=== PATIENT | female | born 1985 | race Caucasian/White ===

== ENCOUNTER 2019-02-11 19:04 | Emergency (ER) | payer OTHER ==
[~2019-02-11] VITALS: Ht 162.6 cm; Wt 101.2 kg
--- NOTE | 2019-02-11 19:10 | ED.ADGEN ---
Adult General Chief Complaint Chief Complaint ".. I may have strept. throat.. it very sore.. " HPI HPI Patient is a 33 year old female who presents with above hx and complaints of sore throat. Patient's pharyngitis been present since 3 days. Patient children have had recent episodes of upper respiratory infection. No recent travel. No history immunosuppression. Did not receive a flu vaccination this season. No Ill contacts outside of the family. Review of Systems Review of Systems Constitutional: Complains of fever Eyes: Denies change in visual acuity, redness, or eye pain [] HENT: Denies nasal congestion. Complaints of sore throat [] Respiratory: Denies cough or shortness of breath [] Cardiovascular: No additional information not addressed in HPI [] GI: Denies abdominal pain, nausea, vomiting, bloody stools or diarrhea [] : Denies dysuria or hematuria [] Musculoskeletal: Denies back pain or joint pain [] Integument: Denies rash or skin lesions [] Neurologic: Denies headache, focal weakness or sensory changes [] Endocrine: Denies polyuria or polydipsia [] All other systems were reviewed and found to be within normal limits, except as documented in this note. Family History Family History Non-contributory Current Medications Current Medications Current Medications Medications (Trade) Dose Ordered Sig/Oleg Start Time Stop Time Status Last Admin Dose Admin Amoxicillin (Amoxil) 500 mg 1X ONCE 02/11/19 19:45 02/11/19 19:46 DC 02/11/19 20:05 500 MG Diphenhydramine HCl (Benadryl) 50 mg 1X ONCE 02/11/19 19:45 02/11/19 19:46 DC 02/11/19 20:05 50 MG Oxycodone/ Acetaminophen (Percocet 5/325) 2 tab 1X ONCE 02/11/19 19:45 02/11/19 19:46 DC 02/11/19 20:06 2 TAB Prednisone (Prednisone) 50 mg 1X ONCE 02/11/19 19:45 02/11/19 19:46 DC 02/11/19 20:05 50 MG Allergies Allergies Allergies Coded Allergies Type Severity Reaction Last Updated Verified No Known Drug Allergies 02/11/19 No Physical Exam Physical Exam Constitutional:Moderately acute distress, non-toxic appearance. [] HENT: Normocephalic, atraumatic, bilateral external ears normal, oropharynx m oist,inject pharynx, no oral exudates, nose normal. [] Eyes: PERRLA, EOMI, conjunctiva normal, no discharge. [] Neck: Normal range of motion, no tenderness, supple, no stridor. Anterior adenopathy. Cardiovascular:Heart rate regular rhythm, no murmur [] Lungs & Thorax: Bilateral breath sounds clear to auscultation [] Abdomen: Bowel sounds normal, soft, no tenderness, no masses, no pulsatile masses. [] Obese. Skin: Warm, dry, no erythema, no rash. [] Back: No tenderness, no CVA tenderness. [] Extremities: No tenderness, no cyanosis, no clubbing, ROM intact, no edema. [] Neurologic: Alert and oriented X 3, normal motor function, normal sensory function, no focal deficits noted. [] Psychologic: Affect anxious, judgement normal, mood normal. [] Current Patient Data Vital Signs Vital Signs Date Time Temp Pulse Resp B/P (MAP) Pulse Ox O2 Delivery O2 Flow Rate FiO2 02/11/19 19:27 98.2 106 16 98 Room Air Lab Results Laboratory Tests Test 02/11/19 19:15 Influenza Type A (Rapid) Negative (NEGATIVE) Influenza Type B (Rapid) Negative (NEGATIVE) Group A Streptococcus Rapid Positive (NEGATIVE) EKG EKG [] Radiology/Procedures Radiology/Procedures [] Course & Med Decision Making Course & Med Decision Making Pertinent Labs and Imaging studies reviewed. (See chart for details). Our goal Listerine 4 times a day. Take Tylenol and ibuprofen for pain. Liquid ibuprofen and Benadryl may be helpful for topical pain relief. Push fluids. Take amoxicillin 500 mg 3 times a day. Follow-up primary care. Return if any concerns . [] Final Impression Final Impression 1. Pharyngitis[]-Strept. Dragon Disclaimer Kasey Disclaimer This electronic medical record was generated, in whole or in part, using a voice recognition dictation system. Discharge Summary Visit Information Final Diagnosis Problems Medical Problems: (1) Strep throat Status: Acute Brief Hospital Course Allergies Allergies Coded Allergies Type Severity Reaction Last Updated Verified No Known Drug Allergies 02/11/19 No Vital Signs Vital Signs Date Time Temp Pulse Resp B/P (MAP) Pulse Ox O2 Delivery O2 Flow Rate FiO2 02/11/19 19:27 98.2 106 16 98 Room Air Lab Results Laboratory Tests Test 02/11/19 19:15 Influenza Type A (Rapid) Negative (NEGATIVE) Influenza Type B (Rapid) Negative (NEGATIVE) Group A Streptococcus Rapid Positive (NEGATIVE) Brief Hospital Course Ms. Weir is a 33 old female who presented with strept. pharyngitis. Discharge Information Condition at Discharge: Stable Disposition/Orders: D/C to Home Dischare Medications Current Medications Prednisone (Prednisone) 50 mg 1X ONCE PO Last administered on 02/11/19at 20:05; Admin Dose 50 MG; Start 02/11/19 at 19:45; Stop 02/11/19 at 19:46; Status DC Diphenhydramine HCl (Benadryl) 50 mg 1X ONCE PO Last administered on 02/11/19at 20:05; Admin Dose 50 MG; Start 02/11/19 at 19:45; Stop 02/11/19 at 19:46; Status DC Oxycodone/ Acetaminophen (Percocet 5/325) 2 tab 1X ONCE PO Last administered on 02/11/19at 20:06; Admin Dose 2 TAB; Start 02/11/19 at 19:45; Stop 02/11/19 at 19:46; Status DC Amoxicillin (Amoxil) 500 mg 1X ONCE PO Last administered on 02/11/19at 20:05; Admin Dose 500 MG; Start 02/11/19 at 19:45; Stop 02/11/19 at 19:46; Status DC Active Scripts Active Amoxicillin 500 Mg Capsule 500 Mg PO TID 7 Days Kasey Disclaimer This chart was dictated in whole or in part using Voice Recognition software in a busy, high-work load, and often noisy Emergency Department environment. It may contain unintended and wholly unrecognized errors or omissions. SEMAJ AGRAWAL MD Feb 11, 2019 19:10
[2019-02-11 19:27] VITALS: BP 160/105
[2019-02-11] MEDS ORDERED: AMOX500C PO (19:42)
[2019-02-11] MEDS ORDERED: diphenhydrAMINE HCL 25 MG CAPSULE PO ONE (19:45)
[2019-02-11] MEDS ORDERED: oxyCODONE/APAP 5/325 1 TAB TABLET PO ONE (19:45)
[2019-02-11] MEDS ORDERED: AMOXICILLIN 250 MG CAPSULE PO ONE (19:45)
[2019-02-11] MEDS ORDERED: predniSONE 10 MG TABLET PO ONE (19:45)
[2019-02-11 19:53] LABS: INFLUENZA A PATIENT NEGATIVE (NEGATIVE); INFLUENZA B PATIENT NEGATIVE (NEGATIVE)
== END 2019-02-11 20:14 | disposition home or self-care (01) ==
LOC: ER 19:04
DX: J02.0 Streptococcal pharyngitis (principal); B95.0 Streptococcus, group A, as the cause of diseases classified elsewhere
CPT/HCPCS: 87804; 87880; 99284; J7512; Q0163

== ENCOUNTER 2021-04-14 06:25 | Emergency (ER) | payer OTHER ==
[~2021-04-14] VITALS: Ht 162.6 cm; Wt 101.9 kg
[~2021-04-14 06:25] MED LIST: AMOX500C PO
--- NOTE | 2021-04-14 07:09 | EKG ---
[address] [address] Test Date: 2021-04-14 Test Time: 06:35:48 Pat Name: OLIVE CABRERA Department: Room: Gender: F Tourist Adviser: NICANOR : 1985 Requested By: JASPREET LAW Order Number: [id number] Reading MD: Measurements Intervals [place] Rate: 87 P: 31 MT: 148 QRS: 15 QRSD: 84 T: 47 QT: 376 QTc: 459 Interpretive Statements SINUS RHYTHM LEFT ATRIAL ABNORMALITY ABNORMAL ECG RI6.02 No previous ECG available for comparison
[2021-04-14 07:18] LABS: BASO % 1 % (0-3); EOS # 0.1 x10^3/uL (0.0-0.7); EOS % 2 % (0-3); HEMATOCRIT 42.4 % (36.0-47.0); HEMOGLOBIN 14.5 g/dL (12.0-15.5); LYMPH # 1.7 x10^3/uL (1.0-4.8); LYMPH % 28 % (24-48); MEAN CORPUSCULAR HEMOGLOBIN 32 pg (25-35); MEAN CORPUSCULAR HGB CONC 34 g/dL (31-37); MEAN CORPUSCULAR VOLUME 93 fL (79-100); MONO # 0.5 x10^3/uL (0.0-1.1); MONO % 8 % (0-9); NEUT # 3.7 x10^3uL (1.8-7.7); NEUT % 61 % (31-73); PLATELET COUNT 256 x10^3/uL (140-400); RED BLOOD COUNT 4.55 x10^6/uL (3.50-5.40); RED CELL DISTRIBUTION WIDTH 12.7 % (11.5-14.5)
[2021-04-14 07:26] LABS: CALCIUM 8.9 mg/dL (8.5-10.1); CREATININE 0.8 mg/dL (0.6-1.0); GFR 82.1; POTASSIUM 4.3 mmol/L (3.5-5.1)
--- NOTE | 2021-04-14 07:27 | RAD ---
INDICATION: Reason: chest pain / Spl. Instructions: / History: COMPARISON: None. FINDINGS: 2 view of chest obtained. No focal airspace consolidation. Cardiomediastinal contour unremarkable. No acute osseous abnormality. Mild degenerative changes spine IMPRESSION: * No focal airspace consolidation or edema. Electronically signed by: Jason Chen MD (04/14/2021 7:25 AM) [id number]
--- NOTE | 2021-04-14 07:31 | PHYS DOC ---
Past History Past Medical History: Fibromyalgia, Hypertension Additional Past Medical Histor: H-FLU(BACTERIAL INFECTION) Past Surgical History: Tubal ligation, Other Additional Past Surgical Histo: D & C Alcohol Use: Occasionally Drug Use: None General Adult EDM: Chief Complaint: CHEST PAIN HPI: HPI: Patient is a 35-year-old female coming in for jaw pain that began radiating to her neck and her chest. No states she has pain between her shoulder blades that radiates through to her chest. Patient initially feeling as a cramping pain and tried to take a hot shower to relieve it. Is the pain has been constant since 2 AM. Says she had had some nausea and lightheadedness. Denies any vomiting. Patient recently diagnosed with a H. influenza and finished her course of amoxicillin. Patient states she has been feeling better. She was also tested for Covid and was negative and has not received any of her vaccines. History of a history of well-controlled hypertension taking hydrochlorothiazide, and ADHD taking Adderall. Review of Systems: Review of Systems: All other systems within normal limits except for as noted in the HPI Allergies: Allergies: Allergies Coded Allergies Type Severity Reaction Last Updated Verified No Known Drug Allergies 02/11/19 No Physical Exam: PE: Constitutional: Well developed, well nourished, no acute distress, non-toxic appearance. [] HENT: Normocephalic, atraumatic, bilateral external ears normal, nose normal. [] Eyes: PERRLA, conjunctiva normal, no discharge. [] Neck: No rigidity, supple, no stridor. [] Cardiovascular: Regular rate and rhythm, brisk cap refill [] Lungs & Thorax: Non labored symmetric respirations, no tachypnea or respiratory distress [] Abdomen: Soft, nondistended. Skin: Warm, dry, no erythema, no rash. [] Back: Unremarkable Extremities: No deformities, range of motion grossly intact, no lower extremity edema [] Neurologic: Alert and oriented X 3, no focal deficits noted. [] Psychologic: Affect normal, judgement normal, mood normal. [] Current Patient Data: Labs: Laboratory Tests Test 04/14/21 06:55 White Blood Count 6.0 x10^3/uL (4.0-11.0) Red Blood Count 4.55 x10^6/uL (3.50-5.40) Hemoglobin 14.5 g/dL (12.0-15.5) Hematocrit 42.4 % (36.0-47.0) Mean Corpuscular Volume 93 fL (79-100) Mean Corpuscular Hemoglobin 32 pg (25-35) Mean Corpuscular Hemoglobin Concent 34 g/dL (31-37) Red Cell Distribution Width 12.7 % (11.5-14.5) Platelet Count 256 x10^3/uL (140-400) Neutrophils (%) (Auto) 61 % (31-73) Lymphocytes (%) (Auto) 28 % (24-48) Monocytes (%) (Auto) 8 % (0-9) Eosinophils (%) (Auto) 2 % (0-3) Basophils (%) (Auto) 1 % (0-3) Neutrophils # (Auto) 3.7 x10^3uL (1.8-7.7) Lymphocytes # (Auto) 1.7 x10^3/uL (1.0-4.8) Monocytes # (Auto) 0.5 x10^3/uL (0.0-1.1) Eosinophils # (Auto) 0.1 x10^3/uL (0.0-0.7) Basophils # (Auto) 0.0 x10^3/uL (0.0-0.2) Vital Signs: Vital Signs Date Time Temp Pulse Resp B/P (MAP) Pulse Ox O2 Delivery O2 Flow Rate FiO2 04/14/21 06:25 98.0 90 20 156/110 100 Room Air EKG: EKG: Sinus rhythm, heart rate 89 beats minute, no ST elevation depression, no ectopy. [] Radiology/Procedures: Radiology/Procedures: [place] [id number] IMAGING REPORT Signed PATIENT: OLIVE CABRERA ACCOUNT: [id number] : 1985 LOCATION: ER AGE: 35 SEX: F EXAM STATUS: REG ER ORD. PHYSICIAN: JASPREET LAW MD REASON: chest pain, aortic dissection, OMNI 350, 100ml PROCEDURE: CT ANGIOGRAPHY CHEST ABDOMEN EXAM: CTA OF THE CHEST, ABDOMEN AND PELVIS WITH CONTRAST. HISTORY: Chest pain, aortic dissection. TECHNIQUE: Computed tomographic angiography of the chest, abdomen and pelvis was performed after the intravenous administration of iodinated contrast. One or more of the following individualized dose reduction techniques were utilized for this examination: 1. Automated exposure control. 2. Adjustment of the mA and/or kV according to patient size. 3. Use of iterative reconstruction technique. COMPARISON: None. FINDINGS: Bone windows reveal no suspicious lesions. There are no pathologically enlarged mediastinal or axillary lymph nodes. There is no pleural or pericardial effusion. The heart is not enlarged. There is a moderate hiatal hernia. Lung windows reveal no infiltrates. The liver, gallbladder, pancreas, adrenal glands, spleen and left kidney are unremarkable. A tiny fat density focus in the right renal cortex measures 3 mm and is consistent with an angiomyolipoma. There are no pathologically enlarged lymph nodes. Changes of bilateral fallopian tube closure are noted. The appendix is not inflamed. There is no small bowel obstruction. The thoracic aorta is normal in caliber. There is no aortic dissection. There is no arch vessel stenosis. There is no pulmonary embolism. There is no abdominal aortic aneurysm. Both iliac systems are patent without stenosis. The celiac axis, superior mesenteric artery and inferior mesenteric artery are patent. The inferior mesenteric artery gives rise to an accessory artery to the right renal lower pole just beyond its origin. Both main renal arteries are patent without stenosis. IMPRESSION: 1. No aortic dissection or aneurysm. 2. Moderate hiatal hernia. Electronically signed by: Micky Hall MD (04/14/2021 9:17 AM) [id number] DICTATED AND SIGNED BY: DEJA HALL MD DATE: 04/14/21 0858 CC: JASPREET LAW MD; JOSELINE RYDER MD ~MTH0 0 [] Heart Score: C/O Chest Pain: Yes HEART Score for Chest Pain: HEART Score for Chest Pain Response (Comments) Value History Moderately Suspicious 1 ECG Nonspecific Repolarizatio 1 Age < 45 0 Risk Factors 1 or 2 Risk Factors 1 Troponin >3 x Normal Limit 2 Total 5 Risk Factors: Risk Factors: DM, Current or recent (<one month) smoker, HTN, HLP, family history of CAD, obesity. Risk Scores: Score 0 - 3: 2.5% MACE over next 6 weeks - Discharge Home Score 4 - 6: 20.3% MACE over next 6 weeks - Admit for Clinical Observation Score 7 - 10: 72.7% MACE over next 6 weeks - Early Invasive Strategies Course & Med Decision Making: Course & Med Decision Making Pertinent Labs and Imaging studies reviewed. (See chart for details) [] Consulted cardiology, patient finally admits to using methamphetamines yes terday. Discussed with brick tender practitioner and brick tender that we can admit her here for heparin drip, would not be taken to [facility]. Dragon Disclaimer: Dragon Disclaimer: This electronic medical record was generated, in whole or in part, using a voice recognition dictation system. Departure Departure: Impression: Primary Impression: NSTEMI (non-ST elevated myocardial infarction) Disposition: ADMITTED INPATIENT Admitting Physician: Agata Garcia Condition: GUARDED Referrals: JOSELINE RYDER MD (PCP) JASPREET LAW MD Apr 14, 2021 07:31
[2021-04-14 07:38] LABS: ALBUMIN 3.9 g/dL (3.4-5.0); ALBUMIN/GLOBULIN RATIO 1.4 (1.0-1.7); MAGNESIUM 2.2 mg/dL (1.8-2.4); TOTAL BILIRUBIN 0.7 mg/dL (0.2-1.0); TOTAL PROTEIN 6.6 g/dL (6.4-8.2)
[2021-04-14] MEDS ORDERED: KETOROLAC 15 MG/ML VIAL. ONE (07:38)
[2021-04-14] MEDS ORDERED: ONDANSETRON PF 4 MG/2 ML VIAL. IVP ONE (07:45)
[2021-04-14] MEDS ORDERED: IV NORMAL SALINE 1,000ML 1,000 ML IV ONE (07:45)
[2021-04-14] MEDS ORDERED: ASPIRIN CHEWABLE 81 MG TABLET. PO ONE (07:45)
[2021-04-14] MEDS: NITROGLYCERIN SUBLINGUAL 0.4 MG BOTTLE OF 25. SL PRN ×2 (07:46→11:39)
[2021-04-14 07:55] LABS: BACTERIA,URINE 0 /HPF (0-FEW); BILIRUBIN,URINE NEG (NEG); CLARITY,URINE HAZY; COLOR,URINE STRAW; GLUCOSE,URINE NEG (NEG); NITRITE,URINE NEG (NEG); RBC,URINE 0 /HPF (0-2); SQUAMOUS EPITHELIAL CELL,UR MANY /LPF; UROBILINOGEN,URINE 0.2 mg/dL (0.2 mg/dL)
[2021-04-14] MEDS ORDERED: IOHEXOL 350 MG/ML 100 ML VIAL. IV ONE (08:00)
[2021-04-14 08:10] LABS: AMPHETAMINE/METHAMPHETAMINE POS (NEG); BARBITURATES NEG (NEG); BENZODIAZEPINES NEG (NEG); CANNABINOIDS NEG (NEG); COCAINE NEG (NEG); METHADONE NEG (NEG); OPIATES NEG (NEG); PHENCYCLIDINE NEG (NEG)
--- NOTE | 2021-04-14 08:23 | EKG ---
[address] [address] Test Date: 2021-04-14 Test Time: 08:13:15 Pat Name: OLIVE CABRERA Department: Room: Gender: F Die Cleaner: NAZARIO : 1985 Requested By: JASPREET LAW Order Number: [id number] Reading MD: Abelardo Rangel MD Measurements Intervals [place] Rate: 89 P: 31 MI: 136 QRS: 21 QRSD: 82 T: 36 QT: 370 QTc: 451 Interpretive Statements SINUS RHYTHM NON-SPECIFIC ST/T CHANGES Electronically Signed On 04-14-2021 16:01:25 CDT by Abelardo Rangel MD
[2021-04-14] MEDS ORDERED: HEPARIN 25,000UTS/250ML PREMIX 250 ML IV PRN (08:30)
[2021-04-14] MEDS ORDERED: HEPARIN for IV BOLUS 10,000 UNIT/10 ML VIAL. IV PRN (08:30)
[2021-04-14] MEDS ORDERED: HEPARIN for IV BOLUS 10,000 UNIT/10 ML VIAL. IV ONE (08:30)
--- NOTE | 2021-04-14 08:49 | PDOC2 ---
CARDIAC CONSULT DATE OF CONSULT DOS: DATE: 04/14/21 TIME: 08:31 REASON FOR CONSULT Reason for Consult Chest pain REFERRING PHYSICIAN Referring Physician Dr. Duarte SOURCE Source: Chart review, Patient HPI History of Present Illness This is a 35 yo female who presented secondary to chest pain. Patient reports she woke up in the middle of the night with throbbing in her jaw. Pain moved down into her left chest. Describes as pressure. Pain went through to her back and down the backside of her left arm. Was associated with dizziness, diaphoresis, and shortness of breath. No prior h/o CAD. Pain improved with fentanyl in ED. Has a history of HTN and AHDH and in on Adderall. UDS + for amphetamines. Also reports h/o methamphetamine use and used meth last night. Initial troponin 0.2. EKG without significant acute changes. PAST MEDICAL HISTORY Cardiovascular: HTN Psych: Addictions (methamphetamines ), Other (ADHD ) PAST SURGICAL HISTORY Past Surgical History: No pertinent history FAMILY HISTORY Family History: Coronary Artery Disease (father ) SOCIAL HISTORY Smoke: 1 pack per day ALCOHOL: none Drugs: Crystal meth Lives: with Family CURRENT MEDICATIONS Current Medications Current Medications Aspirin (Aspirin Chewable) 324 mg 1X ONCE PO Last administered on 04/14/21at 07:46; Start 04/14/21 at 07:45; Stop 04/14/21 at 07:46; Status DC Ketorolac Tromethamine (Toradol 15mg Vial) 15 mg STK-MED ONCE .ROUTE ; Start 04/14/21 at 07:38; Stop 04/14/21 at 07:39; Status DC Fentanyl Citrate (Fentanyl 2ml Vial) 75 mcg 1X ONCE IVP Last administered on 04/14/21at 07:47; Start 04/14/21 at 07:45; Stop 04/14/21 at 07:46; Status UNV Sodium Chloride 1,000 ml @ 1,000 mls/hr 1X ONCE IV Last administered on 04/14/21at 07:47; Start 04/14/21 at 07:45; Stop 04/14/21 at 08:44; Status UNV Ondansetron HCl (Zofran) 4 mg 1X ONCE IVP Last administered on 04/14/21at 07:47; Start 04/14/21 at 07:45; Stop 04/14/21 at 07:46; Status UNV Nitroglycerin (Nitrostat) 0.4 mg PRN Q5MIN PRN SL CHEST PAIN Last administered on 04/14/21at 07:46; Start 04/14/21 at 07:45; Status UNV Iohexol (Omnipaque 350 Mg/ml) 100 ml 1X ONCE IV ; Start 04/14/21 at 08:00; Stop 04/14/21 at 08:01; Status UNV Heparin Sodium/ Dextrose 250 ml @ 0 mls/hr CONT PRN IV SEE I/O RECORD; Start 04/14/21 at 08:30; Status UNV Heparin Sodium (Porcine) (Heparin Sodium) 4,000 unit 1X ONCE IV ; Start 04/14/21 at 08:30; Stop 04/14/21 at 08:31; Status UNV Heparin Sodium (Porcine) (Heparin Sodium) 2,550 unit PRN Q6HRS PRN IV FOR PTT LESS THAN 24 SECONDS; Start 04/14/21 at 08:30; Status UNV Active Scripts Active Amoxicillin 500 Mg Capsule 500 Mg PO TID 7 Days ALLERGIES Allergies: Coded Allergies: No Known Drug Allergies (Unverified , 02/11/19) ROS Review of Systems 14 ROS conducted with pertinent positives noted above in HPI PHYSICAL EXAM General: Alert, Oriented X3, Cooperative, No acute distress HEENT: Atraumatic Lungs: Clear to auscultation, Normal air movement Heart: Regular rate Abdomen: Soft, No tenderness Extremities: No edema, Normal pulses Skin: No rashes, No breakdown Neuro: Normal speech, Sensation intact Psych/Mental Status: Mental status NL, Mood NL MUSCULOSKELETAL: No swelling VITALS Vital Signs Vital Signs Date Time Temp Pulse Resp B/P (MAP) Pulse Ox O2 Delivery O2 Flow Rate FiO2 04/14/21 07:47 20 100 Room Air 04/14/21 07:46 90 156/110 04/14/21 06:25 98.0 LABS LABS Laboratory Tests Test 04/14/21 06:55 04/14/21 07:21 04/14/21 07:38 White Blood Count 6.0 x10^3/uL (4.0-11.0) Red Blood Count 4.55 x10^6/uL (3.50-5.40) Hemoglobin 14.5 g/dL (12.0-15.5) Hematocrit 42.4 % (36.0-47.0) Mean Corpuscular Volume 93 fL (79-100) Mean Corpuscular Hemoglobin 32 pg (25-35) Mean Corpuscular Hemoglobin Concent 34 g/dL (31-37) Red Cell Distribution Width 12.7 % (11.5-14.5) Platelet Count 256 x10^3/uL (140-400) Neutrophils (%) (Auto) 61 % (31-73) Lymphocytes (%) (Auto) 28 % (24-48) Monocytes (%) (Auto) 8 % (0-9) Eosinophils (%) (Auto) 2 % (0-3) Basophils (%) (Auto) 1 % (0-3) Neutrophils # (Auto) 3.7 x10^3uL (1.8-7.7) Lymphocytes # (Auto) 1.7 x10^3/uL (1.0-4.8) Monocytes # (Auto) 0.5 x10^3/uL (0.0-1.1) Eosinophils # (Auto) 0.1 x10^3/uL (0.0-0.7) Basophils # (Auto) 0.0 x10^3/uL (0.0-0.2) Prothrombin Time 9.3 SEC (9.4-11.4) Prothromb Time International Ratio 0.9 (0.9-1.1) D-Dimer ([place]) < 0.19 mg/L (0.00-0.50) Sodium Level 139 mmol/L (136-145) Potassium Level 4.3 mmol/L (3.5-5.1) Chloride Level 104 mmol/L (98-107) Carbon Dioxide Level 28 mmol/L (21-32) Anion Gap 7 (6-14) Blood Urea Nitrogen 11 mg/dL (7-20) Creatinine 0.8 mg/dL (0.6-1.0) Estimated GFR (Cockcroft-Gault) 82.1 BUN/Creatinine Ratio 14 (6-20) Glucose Level 98 mg/dL (70-99) Calcium Level 8.9 mg/dL (8.5-10.1) Magnesium Level 2.2 mg/dL (1.8-2.4) Total Bilirubin 0.7 mg/dL (0.2-1.0) Aspartate Amino Transf (AST/SGOT) 16 U/L (15-37) Alanine Aminotransferase (ALT/SGPT) 28 U/L (14-59) Alkaline Phosphatase 87 U/L (46-116) Troponin I Quantitative 0.203 ng/mL (0-0.055) GG-Gjd-Q-Type Natriuretic Peptide 215 pg/mL (0-124) Total Protein 6.6 g/dL (6.4-8.2) Albumin 3.9 g/dL (3.4-5.0) Albumin/Globulin Ratio 1.4 (1.0-1.7) Lipase 86 U/L (73-393) Urine Collection Type Unknown Urine Color Straw Urine Clarity Hazy Urine pH 7.0 Urine Specific [place] 1.020 Urine Protein Neg (NEG-TRACE) Urine Glucose (UA) Neg mg/dL (NEG) Urine Ketones (Stick) Trace mg/dL (NEG) Urine Blood Neg (NEG) Urine Nitrite Neg (NEG) Urine Bilirubin Neg (NEG) Urine Urobilinogen Dipstick 0.2 mg/dL (0.2 mg/dL) Urine Leukocyte Esterase Neg (NEG) Urine RBC 0 /HPF (0-2) Urine WBC 1-4 /HPF (0-4) Urine Squamous Epithelial Cells Many /LPF Urine Bacteria 0 /HPF (0-FEW) Urine Opiates Screen Neg (NEG) Urine Methadone Screen Neg (NEG) Urine Barbiturates Neg (NEG) Urine Phencyclidine Screen Neg (NEG) Urine Amphetamine/Methamphetamine Pos (NEG) Urine Benzodiazepines Screen Neg (NEG) Urine Cocaine Screen Neg (NEG) Urine Cannabinoids Screen Neg (NEG) Urine Ethyl Alcohol Neg (NEG) Bedside Urine HCG, Qualitative hcg negative (Negative) ASSESSMENT/PLAN Assessment/Plan 1. Chest pain, mixed features 2. Elevated trop; initial 0.2. EKG without significant acute changes. CTA pending. Oh heparin gtt. Most probably secondary to #5 3. Hypertension; mildly elevated upon arrival. 4. ADHD; on Adderall 5. Drugs abuse; reports marijuana and methamphetamine use. Last used last night Recommendations Trend troponin Lipids ASA Echo to assess LV systolic function Discussed cessation from tobacco and recreational drug use. SURAJ SCHULTE APRN Apr 14, 2021 08:49
--- NOTE | 2021-04-14 09:20 | RAD ---
EXAM: CTA OF THE CHEST, ABDOMEN AND PELVIS WITH CONTRAST. HISTORY: Chest pain, aortic dissection. TECHNIQUE: Computed tomographic angiography of the chest, abdomen and pelvis was performed after the intravenous administration of iodinated contrast. One or more of the following individualized dose re duction techniques were utilized for this examination: 1. Automated exposure control. 2. Adjustment of the mA and/or kV according to patient size. 3. Use of iterative reconstruction technique. COMPARISON: None. FINDINGS: Bone windows reveal no suspicious lesions. There are no pathologically enlarged mediastinal or axillary lymph nodes. There is no pleural or eric cardial effusion. The heart is not enlarged. There is a moderate hiatal hernia. Lung windows reveal no infiltrates. The liver, gallbladder, pancreas, adrenal glands, spleen and left kidney are unremarkable. A tiny fat density focus in the right renal cortex measures 3 mm and is consistent with an angiomyolipoma. There are no pathologically enlarged lymph nodes. Changes of bilateral fallopian tube closure are not ed. The appendix is not inflamed. There is no small bowel obstruction. The thoracic aorta is normal in caliber. There is no aortic dissection. There is no arch vessel steno sis. There is no pulmonary embolism. There is no abdominal aortic aneurysm. Both iliac systems are patent without stenosis. The celiac axis, superior mesenteric artery and inferior mesenteric artery are patent. The inferior m esenteric artery gives rise to an accessory artery to the right renal lower pole just beyond its orig in. Both main renal arteries are patent without stenosis. IMPRESSION: 1. No aortic dissection or aneurysm. 2. Moderate hiatal hernia. Electronically signed by: Micky Hall MD (04/14/2021 9:17 AM) [id number]
[2021-04-14] MEDS ORDERED: ACETAMINOPHEN 325 MG TABLET PO ONE (10:00)
[2021-04-14] MEDS ORDERED: ACETAMINOPHEN 325 MG TABLET PO PRN (10:15)
[2021-04-14] MEDS ORDERED: ONDANSETRON PF 4 MG/2 ML VIAL. IVP PRN (10:15)
[2021-04-14 14:15] VITALS: BP 159/107
[2021-04-15] MEDS ORDERED: ASPIRIN ENTERIC COATED 81 MG TABLET.DR. PO SCH (08:00)
== END 2021-04-14 19:45 | disposition admitted as inpatient to this hospital (09) ==
LOC: ER 06:25
DX: I21.4 Non-ST elevation (NSTEMI) myocardial infarction (principal); M79.7 Fibromyalgia; I10 Essential (primary) hypertension; Z20.822 Contact with and (suspected) exposure to COVID-19
CPT/HCPCS: 36415; 71046; 71275; 74175; 80053; 80061; 80307; 81001; 81025; 83690; 83735; 83880; 84484; 85025; 85379; 85610; 85730; 93005; 96361; 96365; 96366; 96375; 96376; 99285; J1644; J2405; J3010; J7030; Q9967; U0003

== ENCOUNTER 2021-04-17 19:14 | Emergency (ER) | payer OTHER ==
[2021-04-17 20:11] LABS: BASO # 0.1 x10^3/uL (0.0-0.2); BASO % 1 % (0-3); EOS # 0.3 x10^3/uL (0.0-0.7); EOS % 4 % (0-3); HEMATOCRIT 40.2 % (36.0-47.0); HEMOGLOBIN 13.6 g/dL (12.0-15.5); LYMPH % 29 % (24-48); MEAN CORPUSCULAR HEMOGLOBIN 32 pg (25-35); MEAN CORPUSCULAR HGB CONC 34 g/dL (31-37); MEAN CORPUSCULAR VOLUME 94 fL (79-100); MONO # 0.4 x10^3/uL (0.0-1.1); MONO % 6 % (0-9); NEUT # 4.2 x10^3uL (1.8-7.7); NEUT % 61 % (31-73); PLATELET COUNT 294 x10^3/uL (140-400); RED BLOOD COUNT 4.27 x10^6/uL (3.50-5.40); RED CELL DISTRIBUTION WIDTH 12.8 % (11.5-14.5); WHITE BLOOD COUNT 6.9 x10^3/uL (4.0-11.0)
[2021-04-17] MEDS ORDERED: MVI, ADULT NO.4 WITH VIT K 10 ML, THIAMINE INJ 100 MG in IV RINGERS SOLUTION,LACTATED 1... IV ONE (20:15)
[2021-04-17 20:22] LABS: CALCIUM 8.8 mg/dL (8.5-10.1); CREATININE 0.7 mg/dL (0.6-1.0); GFR 95.8; POTASSIUM 3.9 mmol/L (3.5-5.1)
[2021-04-17] MEDS ORDERED: ASPIRIN CHEWABLE 81 MG TABLET. PO ONE (20:30)
[2021-04-17] MEDS ORDERED: IV RINGERS SOLUTION,LACTATED 1,000 ML IV SCH (20:30)
[2021-04-17 20:34] LABS: ALBUMIN 3.4 g/dL (3.4-5.0); DIRECT BILIRUBIN 0.1 mg/dL (0.0-0.2); TOTAL BILIRUBIN 0.5 mg/dL (0.2-1.0)
--- NOTE | 2021-04-17 20:51 | PHYS DOC ---
Past History Past Medical History: Fibromyalgia, Hypertension Additional Past Medical Histor: H-FLU(BACTERIAL INFECTION) Past Surgical History: Tubal ligation, Other Additional Past Surgical Histo: D & C Alcohol Use: Occasionally Drug Use: None General Adult EDM: Chief Complaint: CHEST PAIN HPI: HPI: ".. My Blood pressure was up at home.. and I having some chest pain on central lt side.." Patient is a 35 year old female who presents with Lt side chest pain and reportedly elevated BP at home. Patient's relates pain is somewhat pleuritic. And increased with deep breaths and cough. Pt reportedly recently had a small AR on 04/14. Is reportedly following with Cardiology. Patient does have past history of fibromyalgia, hypertension, H. influenzae, tubal ligation, D&C, and prior episodes of anginal-like pain. No history of coagulopathy or previous DVTs or pulmonary embolisms. No history of coagulopathy or DVTs or pulmonary embolisms with family. Patient was seen on 04/14/2021 for similar type complaint. Patient has not taken Covid vaccination. Has not received any other vaccines. Patient's hypertension has been well controlled on hydrochlorothiazide. Patient also has ADHD and has been taking Adderall. No recent travel. No specific ill contacts. Very anxious. Normally follows with Dr. Monsivais Review of Systems: Review of Systems: Constitutional: Denies fever or chills Eyes: Denies change in visual acuity HENT: Denies nasal congestion or sore throat Respiratory: Denies cough or shortness of breath Cardiovascular: Complains of central chest pain GI: Denies abdominal pain, nausea, vomiting, bloody stools or diarrhea : Denies dysuria Musculoskeletal: Denies back pain or joint pain Integument: Denies rash Neurologic: Denies headache, focal weakness or sensory changes Endocrine: Denies polyuria or polydipsia Lymphatic: Denies swollen glands Psychiatric: Denies depression or anxiety Family History: Family History: Noncontributory to current presentation Current Medications: Current Meds: Current Medications Medications (Trade) Dose Ordered Sig/Oleg Start Time Stop Time Status Last Admin Dose Admin Aspirin (Aspirin Chewable) 324 mg 1X ONCE 04/17/21 20:30 04/17/21 20:13 DC Lactated Ringer's 1,000 ml @ 1,000 mls/hr Q1H 04/17/21 20:30 04/17/21 20:13 DC Multivitamins/ Minerals 10 ml/ Thiamine HCl 100 mg/Lactated Ringer's 1,011.3 ml @ 1,011.3 mls/hr 1X ONCE 04/17/21 20:15 04/17/21 20:13 DC Allergies: Allergies: Allergies Coded Allergies Type Severity Reaction Last Updated Verified No Known Drug Allergies 02/11/19 No Physical Exam: PE: Constitutional: Well developed, well nourished, moderate acute distress, non- toxic appearance. [] HENT: Normocephalic, atraumatic, bilateral external ears normal, oropharynx moist, no oral exudates, nose normal. [] Eyes: PERRLA, EOMI, conjunctiva normal, no discharge. [] Neck: Normal range of motion, no tenderness, supple, no stridor. [] Cardiovascular: Tachycardia heart rate regular rhythm, no murmur [] Lungs & Thorax: Bilateral breath sounds equal apex with few scattered wheezes on auscultation [] Abdomen: Bowel sounds normal, soft, no tenderness, no masses, no pulsatile masses. [] Skin: Warm, dry, no erythema, no rash. [] Back: No tenderness, no CVA tenderness. [] Extremities: No tenderness, no cyanosis, no clubbing, ROM intact, no edema. No cording appreciated Neurologic: Alert and oriented X 3, normal motor function, normal sensory function, no focal deficits noted. [] Psychologic: Affect very anxious, judgement normal, mood normal. [] Current Patient Data: Labs: Laboratory Tests Test 04/17/21 19:55 White Blood Count 6.9 x10^3/uL (4.0-11.0) Red Blood Count 4.27 x10^6/uL (3.50-5.40) Hemoglobin 13.6 g/dL (12.0-15.5) Hematocrit 40.2 % (36.0-47.0) Mean Corpuscular Volume 94 fL (79-100) Mean Corpuscular Hemoglobin 32 pg (25-35) Mean Corpuscular Hemoglobin Concent 34 g/dL (31-37) Red Cell Distribution Width 12.8 % (11.5-14.5) Platelet Count 294 x10^3/uL (140-400) Neutrophils (%) (Auto) 61 % (31-73) Lymphocytes (%) (Auto) 29 % (24-48) Monocytes (%) (Auto) 6 % (0-9) Eosinophils (%) (Auto) 4 % (0-3) H Basophils (%) (Auto) 1 % (0-3) Neutrophils # (Auto) 4.2 x10^3uL (1.8-7.7) Lymphocytes # (Auto) 2.0 x10^3/uL (1.0-4.8) Monocytes # (Auto) 0.4 x10^3/uL (0.0-1.1) Eosinophils # (Auto) 0.3 x10^3/uL (0.0-0.7) Basophils # (Auto) 0.1 x10^3/uL (0.0-0.2) Sodium Level 140 mmol/L (136-145) Potassium Level 3.9 mmol/L (3.5-5.1) Chloride Level 103 mmol/L (98-107) Carbon Dioxide Level 27 mmol/L (21-32) Anion Gap 10 (6-14) Blood Urea Nitrogen 12 mg/dL (7-20) Creatinine 0.7 mg/dL (0.6-1.0) Estimated GFR (Cockcroft-Gault) 95.8 Glucose Level 101 mg/dL (70-99) H Calcium Level 8.8 mg/dL (8.5-10.1) Magnesium Level 2.0 mg/dL (1.8-2.4) Total Bilirubin 0.5 mg/dL (0.2-1.0) Direct Bilirubin 0.1 mg/dL (0.0-0.2) Aspartate Amino Transferase (AST) 23 U/L (15-37) Alanine Aminotransferase (ALT) 31 U/L (14-59) Alkaline Phosphatase 81 U/L (46-116) Creatine Kinase 50 U/L (26-192) Troponin I Quantitative 0.124 ng/mL (0-0.055) H RI-Qye-F-Type Natriuretic Peptide 904 pg/mL (0-124) H Total Protein 7.0 g/dL (6.4-8.2) Albumin 3.4 g/dL (3.4-5.0) Lipase 70 U/L (73-393) L EKG: EKG: My interpretation EKG shows a sinus tachycardia 106 bpm. Does have some bimodal P waves and left leads. But no findings acute STEMI or contralateral changes. [] Radiology/Procedures: Radiology/Procedures: Patient left before completing chest x-ray [] Heart Score: C/O Chest Pain: Yes HEART Score for Chest Pain: HEART Score for Chest Pain Response (Comments) Value History Slighlty/Non-Suspicious 0 ECG Normal 0 Age < 45 0 Risk Factors No Risk Factors 0 Troponin >1-<3x Normal Limit 1 Total 1 Risk Factors: Risk Factors: DM, Current or recent (<one month) smoker, HTN, HLP, family history of CAD, obesity. Risk Scores: Score 0 - 3: 2.5% MACE over next 6 weeks - Discharge Home Score 4 - 6: 20.3% MACE over next 6 weeks - Admit for Clinical Observation Score 7 - 10: 72.7% MACE over next 6 weeks - Early Invasive Strategies Course & Med Decision Making: Course & Med Decision Making Pertinent Labs and Imaging studies reviewed. (See chart for details) Pt. left with out notification of staff. When called she stated she was going to hospital that could do painless IV's. Attempts notify patient unsuccessful to advise her of the elevated troponin. Impression": 1. Chest pain 2. Elevated Trop. 0.124 [] Dragon Disclaimer: Dragon Disclaimer: This electronic medical record was generated, in whole or in part, using a voice recognition dictation system. Departure Departure: Impression: Primary Impression: Left against medical advice Disposition: LEFT AGAINST MEDICAL ADVICE Condition: GUARDED Dragon Disclaimer This chart was dictated in whole or in part using Voice Recognition software in a busy, high-work load, and often noisy Emergency Department environment. It may contain unintended and wholly unrecognized errors or omissions. SEMAJ AGRAWAL MD Apr 17, 2021 20:51
--- NOTE | 2021-04-18 13:15 | EKG ---
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
--- NOTE | 2021-04-18 13:29 | EKG ---
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
--- NOTE | 2021-05-07 08:46 | EKG ---
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
== END 2021-04-17 20:12 | disposition left against medical advice (07) ==
LOC: ER 19:14
DX: R07.89 Other chest pain (principal); R77.8 Other specified abnormalities of plasma proteins; M79.7 Fibromyalgia; I10 Essential (primary) hypertension
CPT/HCPCS: 36415; 80048; 80076; 82550; 83690; 83735; 83880; 84443; 84484; 85025; 93005; 99284